=== PATIENT | female | born 1995 | race Caucasian/White ===

== ENCOUNTER 2020-05-10 11:38 | Emergency (ER) | payer OTHER ==
[~2020-05-10] VITALS: Ht 165.1 cm; Wt 70.0 kg
--- NOTE | 2020-05-10 12:23 | RAD ---
Examination: OB <14 WKS W/TV History: Reason: vaginal bleeding in (8 weeks) / Spl. Instructions: / History: Comparison/Correlation: None Findings: OB ultrasound exam was performed with transabdominal and transvaginal technique. Transvaginal technique was utilized to better assess structure within the uterine cavity. Uterus measures 9 cm x 4.0 x 2.9 cm. Myometrium is unremarkable. Minimal fluid within the uterine cavity and uterine cervix is seen. No intrauterine gestation. Right ovary measures 4.2 cm x 3.5 cm x 2.8 hematocrit. Left ovary measures 3.77 x 1.9 cm x 2 7. An follicle measuring up to 1.9 cm diameter is present. Smaller bilateral follicles are seen and physiologic in appearance. No suspicious mass. No evidence of ovarian torsion. No pelvic free fluid. Impression: No intrauterine gestation or adnexal mass. There is fluid within the uterine cavity but no gestational sac. Correlate for possibility of spontaneous . Consider follow-up serial beta hCG and possibly follow-up ultrasound exam to assess for the possibility of ectopic gestation. Electronically signed by: Osiel Reese MD (05/10/2020 12:20 PM) [id number]
[2020-05-10 13:05] LABS: BASO # 0.1 x10^3/uL (0.0-0.2); BASO % 1 % (0-3); EOS # 0.5 x10^3/uL (0.0-0.7); EOS % 5 % (0-3); HEMATOCRIT 37.5 % (36.0-47.0); LYMPH # 0.8 x10^3/uL (1.0-4.8); LYMPH % 8 % (24-48); MEAN CORPUSCULAR HEMOGLOBIN 30 pg (25-35); MEAN CORPUSCULAR HGB CONC 35 g/dL (31-37); MEAN CORPUSCULAR VOLUME 86 fL (79-100); MONO # 0.5 x10^3/uL (0.0-1.1); MONO % 5 % (0-9); NEUT # 8.1 x10^3uL (1.8-7.7); NEUT % 81 % (31-73); PLATELET COUNT 391 x10^3/uL (140-400); RED BLOOD COUNT 4.35 x10^6/uL (3.50-5.40); RED CELL DISTRIBUTION WIDTH 13.9 % (11.5-14.5)
--- NOTE | 2020-05-10 13:13 | PHYS DOC ---
Past History Past Medical History: Asthma Past Surgical History: No Surgical History Alcohol Use: None General Adult EDM: Chief Complaint: VAGINAL BLEEDING HPI: HPI: 24-year-old female presents with report of vaginal bleeding and that started approximately 2 hours prior to arrival. Patient reports she is a G2, P1. Reports last menstrual period was 03/11/2020 therefore approximately 8 weeks gestation. Patient reports she has not yet made an appointment with an OB. Patient reports she did take four home test last Sunday to confirm . Denies vaginal discharge or concern for STDs. Denies trauma. Denies dysuria. Denies fever or chills. Review of Systems: Review of Systems: Constitutional: Denies fever or chills Eyes: Denies redness or eye pain HENT: Denies nasal congestion or sore throat Respiratory: Denies cough or shortness of breath Cardiovascular: Denies chest pain or palpitations GI: Denies abdominal pain, nausea, or vomiting /[employer]: Denies dysuria or hematuria; reports vaginal bleeding in Musculoskeletal: Denies back pain or joint pain Integument: Denies rash or skin lesions Neurologic: Denies headache, focal weakness or sensory changes Complete systems were reviewed and found to be within normal limits, except as documented in this note. Allergies: Allergies: Allergies Coded Allergies Type Severity Reaction Last Updated Verified No Known Drug Allergies 05/10/20 No Physical Exam: PE: Constitutional: Well developed, well nourished, no acute distress, non-toxic appearance HENT: Normocephalic, atraumatic Eyes: Conjunctiva normal, no discharge Neck: Normal range of motion, no tenderness, supple Lungs & Thorax: No respiratory distress, equal chest rise and fall Abdomen: Soft, no tenderness, no guarding/rebound tenderness/distention Pelvic: Hand Slitter RN, blood noted in vaginal vault, no adnexal tenderness, no CMT Skin: Warm, dry, no erythema, no rash Extremities: No tenderness, ROM intact, no edema Neurologic: Alert and oriented X 3, no focal deficits noted Psychologic: Affect normal, judgment normal Current Patient Data: Labs: Laboratory Tests Test 05/10/20 12:43 White Blood Count 10.0 x10^3/uL (4.0-11.0) Red Blood Count 4.35 x10^6/uL (3.50-5.40) Hemoglobin 13.0 g/dL (12.0-15.5) Hematocrit 37.5 % (36.0-47.0) Mean Corpuscular Volume 86 fL (79-100) Mean Corpuscular Hemoglobin 30 pg (25-35) Mean Corpuscular Hemoglobin Concent 35 g/dL (31-37) Red Cell Distribution Width 13.9 % (11.5-14.5) Platelet Count 391 x10^3/uL (140-400) Neutrophils (%) (Auto) 81 % (31-73) H Lymphocytes (%) (Auto) 8 % (24-48) L Monocytes (%) (Auto) 5 % (0-9) Eosinophils (%) (Auto) 5 % (0-3) H Basophils (%) (Auto) 1 % (0-3) Neutrophils # (Auto) 8.1 x10^3uL (1.8-7.7) H Lymphocytes # (Auto) 0.8 x10^3/uL (1.0-4.8) L Monocytes # (Auto) 0.5 x10^3/uL (0.0-1.1) Eosinophils # (Auto) 0.5 x10^3/uL (0.0-0.7) Basophils # (Auto) 0.1 x10^3/uL (0.0-0.2) Vital Signs: Vital Signs Date Time Temp Pulse Resp B/P (MAP) Pulse Ox O2 Delivery O2 Flow Rate FiO2 05/10/20 11:40 98.6 90 18 126/88 (101) Room Air EKG: EKG: [] Radiology/Procedures: Radiology/Procedures: PROCEDURE: OB <14 WKS W/TV Examination: OB <14 WKS W/TV History: Reason: vaginal bleeding in (8 weeks) / Spl. Instructions: / History: Comparison/Correlation: None Findings: OB ultrasound exam was performed with transabdominal and transvaginal technique. Transvaginal technique was utilized to better assess structure within the uterine cavity. Uterus measures 9 cm x 4.0 x 2.9 cm. Myometrium is unremarkable. Minimal fluid within the uterine cavity and uterine cervix is seen. No intrauterine gestation. Right ovary measures 4.2 cm x 3.5 cm x 2.8 hematocrit. Left ovary measures 3.77 x 1.9 cm x 2 7. An follicle measuring up to 1.9 cm diameter is present. Smaller bilateral follicles are seen and physiologic in appearance. No suspicious mass. No evidence of ovarian torsion. No pelvic free fluid. Impression: No intrauterine gestation or adnexal mass. There is fluid within the uterine cavity but no gestational sac. Correlate for possibility of spontaneous . Consider follow-up serial beta hCG and possibly follow-up ultrasound exam to assess for the possibility of ectopic gestation. Electronically signed by: Osiel Reese MD (05/10/2020 12:20 PM) [id number] Course & Med Decision Making: Course & Med Decision Making Pertinent Labs and Imaging studies reviewed. (See chart for details) Patient presents with report of vaginal bleeding and as G2, P1 at approximately 8 weeks gestation. Beta-hCG 249. Patient is O+. H&H stable. Pelvic exam performed. Blood noted in vaginal vault. Chlamydia/gonorrhea cultures pending. Patient declined empiric treatment. Wet mount negative. OB ultrasound without gestational sac concerning for spontaneous . Patient stable for discharge with outpatient follow-up with PCP/OB. Patient advised to have beta-hCG rechecked in 72 hours. Discussed findings and plan with patient, who acknowledges understanding and agreement. Errol Disclaimer: [employer] Disclaimer: This electronic medical record was generated, in whole or in part, using a voice recognition dictation system. Departure Departure: Impression: Primary Impression: Threatened miscarriage in early Disposition: 01 HOME/RESIDENCE PRIOR TO ADM Condition: STABLE Referrals: ANDERSON MARCELO APRN (PCP) Patient Instructions: Threatened Miscarriage, [id number] Additional Instructions: Please have your BHCG lab rechecked in 3 days. May use over the counter Tylenol for pain or discomfort. Justification of Admission: Justification of Admission: Justification of Admission Dx: N/A YANET NAVARRO DO May 10, 2020 13:13
[2020-05-10 13:40] VITALS: BP 121/78
[2020-05-12 23:07] LABS: CHLAMYDIA PROBE Negative (Negative)
== END 2020-05-10 13:40 | disposition home or self-care (01) ==
LOC: ER 11:38
DX: O20.0 Threatened abortion (principal); O99.511 Diseases of the respiratory system complicating pregnancy, first trimester; J45.909 Unspecified asthma, uncomplicated; Z3A.00 Weeks of gestation of pregnancy not specified
CPT/HCPCS: 76801; 76817; 84702; 85025; 86900; 86901; 87491; 87591; 99284; Q0111; 36415